=== PATIENT | male | born 1960 | race African-American/Black ===

== ENCOUNTER 2017-01-21 14:38 | Emergency (ER) | payer MEDICAID, MEDICARE ==
--- NOTE | 2017-01-21 17:03 | ED Physician Chart ---
Chief Complaint/HPI - Patient Information Date Seen:: 01/21/17 Time Seen:: 17:03 Chief Complaint:: PERSCRIPTION REFILL Allergies:: Allergies Allergy/AdvReac Type Severity Reaction Status Date / Time No Known Allergies Allergy Verified 01/21/17 14:56 Vitals:: Vital Signs - 8 hr 01/21/17 14:57 Temp 97.5 F HR 69 RR 17 BP 152/52 O2 Sat % 99 ED Septic Shock - . Is Septic Shock (SBP<90, OR Lactate>4 mmol\L) present?: No - <6hrs of presentation: Vital Signs: Vital Signs - 8 hr 01/21/17 14:57 Temp 97.5 F HR 69 RR 17 BP 152/52 O2 Sat % 99 ED Discharge Plan - Patient Disposition Admit/Discharge/Transfer: PATIENT ELOPED Condition at Disposition: Unchanged
== END 2017-01-21 16:30 | disposition left against medical advice (07) ==
LOC: ER 14:38
DX: Z76.0 Encounter for issue of repeat prescription (principal)